=== PATIENT | female | born 1965 | race Caucasian/White ===

== ENCOUNTER 2024-11-28 06:56 | Day surgery (SDC) | payer BC ==
[2024-11-28] MEDS ORDERED: Midazolam 1 MG/ML 2 ML SDV ONE (07:33)
[2024-11-28] MEDS ORDERED: Propofol 200 MG/20 ML SDV ONE (07:33)
[2024-11-28] MEDS ORDERED: fentaNYL 50 MCG/ML SDV ONE (07:33)
[2024-11-28] MEDS: Lactated Ringers 1,000 ML IV SCH (07:48)
== END 2024-11-28 09:59 | disposition home or self-care (01) ==
LOC: JP.SDS 06:56
PROVIDERS: ATTEND Surgery
DX: Z12.11 Encounter for screening for malignant neoplasm of colon (principal); I10 Essential (primary) hypertension; Z88.2 Allergy status to sulfonamides; Z80.0 Family history of malignant neoplasm of digestive organs
CPT/HCPCS: 00812; 45378; J2250; J2704; J3010; J7120